=== PATIENT | male | born 1995 | race Caucasian/White ===

== ENCOUNTER 2024-09-29 01:02 | Emergency (ER) | payer OTHER ==
[~2024-09-29] VITALS: Ht 185.4 cm; Wt 113.4 kg
[~2024-09-29 01:02] MED LIST: MOTRIN800 MG PO
[2024-09-29] MEDS ORDERED: MELOXICAM15 MG PO (01:31)
[2024-09-29] MEDS ORDERED: AMOX-CLAV 875-1 EACH PO (01:31)
[2024-09-29] MEDS ORDERED: Ketorolac Tromethamine 60 MG/2 ML VIAL IM ONE (01:35)
[2024-09-29] MEDS ORDERED: Amoxicillin/Clavulanate Pota 875 MG TAB PO ONE (01:35)
== END 2024-09-29 01:32 | disposition home or self-care (01) ==
LOC: ED 01:02
DX: K04.7 Periapical abscess without sinus (principal); F17.200 Nicotine dependence, unspecified, uncomplicated